=== PATIENT | female | born 1990 | race Hispanic/Latino ===

== ENCOUNTER 2018-10-25 15:02 | Inpatient (IN) | payer OTHER ==
[~2018-10-25 15:02] MED LIST: Dexamethasone 20 MG/5 ML VIAL ONE; Ondansetron PF 4 MG/2 ML Vial ONE; ePHEDrine 50 MG/ML VIAL ONE
[2018-10-25 16:36] LABS: Hemoglobin 10.2 g/dL (12.0-16.0); Mean Corpuscular HGB CONC 32.6 g/dL (32.0-36.0); Mean Corpuscular Volume 70.6 fL (78.0-98.0); Mean Platelet Volume 9.3 fL (7.4-10.4); Platelet Count 235 thou/uL (130-400); Red Blood Cell (RBC) Count 4.41 mill/uL (4.20-5.40); White Blood Cell (WBC) Count 8.6 thou/uL (4.8-10.8)
[2018-10-25] MEDS ORDERED: MORPHINE 5 MG/10 ML PF VIAL ONE (16:46)
[2018-10-25] MEDS ORDERED: Azithromycin 500 MG VIAL ONE (16:59)
[2018-10-25 17:14] LABS: HBSAg Index 0.23 S/CO (0-0.99); Hep B Surf Ag Non-Reactive S/CO (NonReactive); Syphilis Antibody Nonreactive (Nonreactive); Syphilis Antibody Index 0.04 S/CO (<1.00 Non-Reactive)
[2018-10-25] MEDS ORDERED: Oxytocin 10 UNITS/ML VIAL ONE (17:30)
[2018-10-25] MEDS ORDERED: ePHEDrine/0.9% NaCl/PF SYRINGE 50 mg/10 ml ONE (17:31)
[2018-10-25] MEDS ORDERED: Ondansetron PF 4 MG/2 ML Vial ONE (17:31)
[2018-10-25] MEDS ORDERED: Dexamethasone 4 mg/ml Vial ONE (17:31)
[2018-10-25 17:44] LABS: Hemoglobin 8.4 g/dL (12.0-16.0); Mean Corpuscular HGB CONC 33.2 g/dL (32.0-36.0); Mean Corpuscular Hemoglobin 23.4 pg (27.0-31.0); Mean Corpuscular Volume 70.5 fL (78.0-98.0); Mean Platelet Volume 9.1 fL (7.4-10.4); Platelet Count 191 thou/uL (130-400); RBC Distribution Width 13.9 % (11.5-14.5); Red Blood Cell (RBC) Count 3.57 mill/uL (4.20-5.40); White Blood Cell (WBC) Count 6.6 thou/uL (4.8-10.8)
[2018-10-25] MEDS ORDERED: diphenhydrAMINE 50 MG/ML VIAL IVP PRN (18:14)
[2018-10-25] MEDS ORDERED: Ondansetron HCl/PF 4 MG/2 ML Vial IVP PRN (18:14)
[2018-10-25] MEDS ORDERED: Naloxone HCl 0.4 mg/ml Vial IV PRN (18:14)
[2018-10-25] MEDS ORDERED: HYDROmorphone 2 MG/ML VIAL SLOW IVP PRN (18:14)
[2018-10-25] MEDS ORDERED: Promethazine HCl 25 MG SUPP PR PRN (18:14)
[2018-10-25] MEDS ORDERED: Ondansetron PF 4 MG/2 ML Vial IVP PRN (18:14)
[2018-10-25] MEDS ORDERED: Naloxone HCl 0.4 mg/ml Vial IVP PRN ×2 (18:14)
[2018-10-25] MEDS ORDERED: Promethazine HCl 25 MG/ML VIAL IM PRN ×2 (18:14→19:18)
[2018-10-25] MEDS ORDERED: Meperidine HCl/PF 25 MG/ML VIAL SLOW IVP PRN (18:14)
[2018-10-25] MEDS ORDERED: L&D-Morphine 4 MG/ML VIAL SLOW IVP PRN (18:14)
[2018-10-25] MEDS ORDERED: Ketorolac Tromethamine 30 MG/ML VIAL IVP SCH (18:15)
[2018-10-25] MEDS ORDERED: Communication Order-Pharmacy FS SCH (18:15)
[2018-10-25] MEDS ORDERED: NS / Oxytocin 40 units/1000ml 1,000 ML IV SCH (19:18)
[2018-10-25] MEDS ORDERED: hydrALAZINE 20 MG/ML VIAL SLOW IVP PRN ×2 (19:18)
[2018-10-25] MEDS: Ketorolac Tromethamine 30 MG/ML VIAL IVP PRN (21:35)
[2018-10-25] MEDS: Ondansetron PF 4 MG/2 ML Vial IVP PRN (21:36)
[2018-10-25 21:40] LABS: Hemoglobin 9.4 g/dL (12.0-16.0)
--- NOTE | 2018-10-25 22:06 | PDOC.PP ---
Post Progress Note Post Day #: 0 Subjective: Patient had an episode of vomiting and received zofran after this. She states she has minimal to no pain. She denies feeling dizzy or weak. Has been tolerating water and ice chips. Vital Signs (12 hours) Temp Pulse Resp BP 10/25/18 18:02 97.7 F 83 20 108/59 L Weight Weight 83.915 kg - Physical Examination General: NAD Cardiovascular: no m/r/g, RRR Respiratory: clear to auscultation bilaterally, non-labored breathing Abdominal: + bowel sounds, lochia, no distention, appropriately TTP Fundus firm & at: 2cm below umbilicus Extremities: negative homans (B) Skin: CS incision dry & intact, no rash Neurological: no gross focal deficits Psychiatric: A&Ox3, normal affect Result Diagrams: 10/26/18 10:18 Additional Labs: Post Labs Blood Type A POSITIVE 10/25/18 17:25 Hep Bs Antigen Non-Reactive S/CO (NonReactive) 10/25/18 16:14 (1) Term delivered Code(s): O80 - ENCOUNTER FOR FULL-TERM UNCOMPLICATED DELIVERY Status: Acute (2) Term Code(s): Z34.90 - ENCNTR FOR SUPRVSN OF NORMAL , UNSP, UNSP TRIMESTER Status: Acute - Assessment/Plan # PP day 0, 4 hr post op check - draining clear urine, 250 ml output in last 4 hours - uterus firm, appropriate TTP - patient denies dizziness, still appears mildly pale, pulse in 80s, BPs in 110- 120s/70s - received 1 U transusion, Hgb 9.4 - will re-check hgb in AM Addendum - Attending - Attending Attestation Date/Time: 10/26/18 1048 I personally evaluated the patient and discussed the management with Dr. Llanes. I agree with the History, Examination, Assessment and Plan documented above with any addition or exceptions noted below.
[2018-10-26] MEDS: Ketorolac Tromethamine 30 MG/ML VIAL IVP PRN ×3 (04:41→17:24)
[2018-10-26] MEDS: Lactated Ringer's 1,000 ML IV SCH ×3 (04:41→20:28)
--- NOTE | 2018-10-26 07:22 | PDOC.PP ---
Post Progress Note Post Day #: 1 Subjective: No significant overnight events. Patient doing well this AM. Denies dizziness or fatigue. She has yet to stand up and walk around at this point. Tolerating PO. PO intake tolerated: yes Flatus: yes Ambulation: no Vital Signs (12 hours) Temp Pulse Resp BP Pulse Ox 10/26/18 04:56 98.0 F 70 17 101/56 L 10/26/18 03:00 98.1 F 71 17 106/60 10/26/18 00:25 98.1 F 68 17 111/56 L 10/25/18 22:30 98.1 F 73 17 128/68 10/25/18 21:30 97.6 F 65 16 120/68 98 Weight Weight 83.915 kg - Physical Examination General: NAD Cardiovascular: RRR Respiratory: clear to auscultation bilaterally, non-labored breathing Abdominal: + bowel sounds, lochia (Minimal), no distention, appropriately TTP Fundus firm & at: at umbilicus Extremities: negative homans (B) Skin: CS incision dry & intact, no rash Neurological: no gross focal deficits Psychiatric: A&Ox3, normal affect Result Diagrams: 10/26/18 10:18 Additional Labs: Post Labs Blood Type A POSITIVE 10/25/18 17:25 Hep Bs Antigen Non-Reactive S/CO (NonReactive) 10/25/18 16:14 - Assessment/Plan 28 year old at 40.2 wks delivered TAGA F via pLTCS for NRFHT's ( persistent cat II strip) at 17:05 on 10/25. Apgars 8/9. 1. Routine PP care - Post-op day #1 s/p pLTCS - Encourage ambulation - SCD's for DVT ppx - Remove hughes catheter - ADAT - Rubella immune, Rh + 2. PPH - QBL 1550 mL - Starting H/H 10.2/31.2 --> intraoperative H/H 8.4/25.2 --> 3h post-op H/H 9.4/ 28.1 - Patient transfused 1 unit type and crossed pRBC's immediately post-op - VSS - Patient asymptomatic - Continue to monitor - Iron BID with stool softener 3. Anemia of - See plan as above Dispo: LOS >48 hours. Continue to monitor today and encourage ambulation. Addendum - Attending - Attending Attestation Date/Time: 10/26/18 5737 I personally evaluated the patient and discussed the management with Dr. Martines and team. I agree with the History, Examination, Assessment and Plan documented above with any addition or exceptions noted below. Doing ok this morning besides being a bit fatigued. Monitor h/h, transfusion if necessary.
[2018-10-26] MEDS: Ondansetron PF 4 MG/2 ML Vial IVP PRN (08:45)
[2018-10-26 10:33] LABS: Hemoglobin 7.4 g/dL (12.0-16.0)
[2018-10-26] MEDS ORDERED: Acetaminophen 325 MG TAB PO PRN (21:20)
[2018-10-26] MEDS ORDERED: Bisacodyl 10 MG SUPP PR PRN (21:20)
[2018-10-27] MEDS: Ibuprofen 800 MG TAB PO SCH ×4 (01:14→23:53)
[2018-10-27] MEDS: HYDROcodone/Acetaminophen 5/325 mg Tablet PO PRN ×3 (01:14→14:21)
[2018-10-27] MEDS: Lactated Ringer's 1,000 ML IV SCH (04:59)
[2018-10-27 06:01] LABS: Mean Corpuscular HGB CONC 32.9 g/dL (32.0-36.0); Mean Platelet Volume 8.8 fL (7.4-10.4); Platelet Count 187 thou/uL (130-400); RBC Distribution Width 15.3 % (11.5-14.5); Red Blood Cell (RBC) Count 2.91 mill/uL (4.20-5.40); White Blood Cell (WBC) Count 6.6 thou/uL (4.8-10.8)
--- NOTE | 2018-10-27 06:54 | PDOC.PP ---
Post Progress Note Post Day #: 2 Subjective: Patient doing well this AM. No significant overnight events. Hemoglobin 7 this AM, but patient completely asymptomatic. VSS. She denies dizziness upon standing or fatigue. Patient has not ambulated much since delivery. She was encouraged to do so. PO intake tolerated: yes Flatus: yes Ambulation: yes Vital Signs (12 hours) Temp Pulse Resp BP Pulse Ox 10/27/18 05:30 98.2 F 72 18 96/51 L 10/27/18 01:10 98.3 F 75 18 110/64 10/26/18 19:28 97.9 F 76 18 106/64 100 Weight Weight 83.915 kg - Physical Examination General: NAD Cardiovascular: RRR Deviation from normal: 2/6 systolic murmur Respiratory: clear to auscultation bilaterally, non-labored breathing Abdominal: + bowel sounds, lochia (minimal), no distention, appropriately TTP Extremities: negative homans (B) Skin: CS incision dry & intact, no rash Neurological: no gross focal deficits Psychiatric: A&Ox3, normal affect Result Diagrams: 10/28/18 06:25 Additional Labs: Post Labs Blood Type A POSITIVE 10/25/18 17:25 Hep Bs Antigen Non-Reactive S/CO (NonReactive) 10/25/18 16:14 (1) PPH ( hemorrhage) Code(s): O72.1 - OTHER IMMEDIATE HEMORRHAGE Status: Acute (2) Anemia affecting Code(s): O99.019 - ANEMIA COMPLICATING , UNSPECIFIED TRIMESTER Status : Acute (3) Term delivered Code(s): O80 - ENCOUNTER FOR FULL-TERM UNCOMPLICATED DELIVERY Status: Acute - Assessment/Plan 28 year old at 40.2 wks delivered TAGA F infant via pLTCS for NRFHT's ( persistent cat II strip) at 17:05 on 10/25. Apgars 8/9. 1. Routine PP care - Post-op day #2 s/p pLTCS - Encourage ambulation - SCD's for DVT ppx - Remove hughes catheter - ADAT - Rubella immune, Rh + 2. PPH - QBL 1550 mL - Starting H/H 10.2/31.2 --> intraoperative H/H 8.4/25.2 --> 3h post-op H/H 9.4/ 28.1 --> 7.4 630 AM --> 7.0 10/27 - Patient transfused 1 unit type and crossed pRBC's immediately post-op - VSS - Patient asymptomatic - Continue to monitor; transfuse when <7 or symptomatic - Iron BID with stool softener 3. Anemia of - See plan as above Dispo: LOS >48 hours. Continue to monitor today and encourage ambulation. Possible d/c home tomorrow. Addendum - Attending - Attending Attestation Date/Time: 10/27/18 5645 I personally evaluated the patient and discussed the management with Dr. Martines I agree with the History, Examination, Assessment and Plan documented above with any addition or exceptions noted below. 28 female s/p PLTCS 2/2 NRFHT with persistent cat II tracing POD/PPD#2 Patient will persistent fatigue and dizziness with ambulation. Lochia minimal. Breast feeding. Not ambulating due to dizziness. Reports abdominal pain with movement. Fundus firm and nontender. Lateral edges of incision, pain noted with palpation. 1. s/p PLTCS: Continue routine care. Incision healing well. No s/sx of infection. Will improve pain control. Discussed alternatives including abdominal binder and heat therapy.
[2018-10-27] MEDS: Docusate 100 MG CAP PO SCH ×2 (08:29→21:10)
[2018-10-27] MEDS: Ferrous Sulfate 325 MG TAB PO SCH ×2 (08:29→21:10)
[2018-10-27] MEDS: Prenatal Vitamin 1 TAB PO SCH (08:29)
[2018-10-27] MEDS ORDERED: Polyethylene Glycol 3350 17 GM Packet PO SCH (09:00)
[2018-10-27] MEDS ORDERED: Docusate Calcium (SURFAK) 240 MG CAP PO SCH (09:00)
--- NOTE | 2018-10-27 12:28 | OP ---
DATE OF PROCEDURE: 11/24/2018 RESIDENT SURGEON: Myrtle Martines DO IN [employer] SURGEON: Jacinto Llanes MD ATTENDING SURGEON: Dr. Jose Verdin PROCEDURE PERFORMED: Primary low-transverse section. PREOPERATIVE DIAGNOSES: 1. Term intrauterine and labor. 2. Non-reassuring heart tones, persistent category II strip, not responsive to resuscitative measures. 3. Anemia in . POSTOPERATIVE DIAGNOSES: 1. Term intrauterine , delivered. 2. Non-reassuring heart tones, persistent category II strip, not responsive to resuscitative measures. 3. hemorrhage, category IV hemorrhage ANESTHESIA: Spinal. INDICATIONS: This is a 28-year-old, G3, P2-0-0-2 at 40 and 2 weeks, who presented in labor and was noted to have a persistent category II strip. Patient was taken back for urgent delivery. DESCRIPTION OF PROCEDURE: After risks, benefits, and alternatives were explained to the patient, she gave informed consent. Preoperative antibiotics included cefazolin 2 g IV and azithromycin 500 mg. The patient was taken to the operating room and spinal anesthesia was initiated. She was placed in the supine position with a leftward tilt and prepped and draped in the usual sterile fashion. A Pfannenstiel incision was made with a scalpel and carried down to the level of the fascia, which was sharply nicked. The fascial cut was extended bilaterally with Johnson scissors. The inferior and superior edges of the cut fascial edges were elevated with Aliyah clamps and underlying rectus muscles were sharply and bluntly dissected free. The recti were divided digitally and retracted manually. The peritoneum was entered bluntly and retracted manually. Bladder blade was placed. Bladder flap was created with Metzenbaum scissors. A low-transverse score was made with a scalpel and the uterus was entered in the midline with the scalpel. Upon entering the uterus, there was noted to be a lot of bleeding potentially due to entry into a uterine sinus. The hysterotomy was extended manually. Clear fluid was noted and the was noted to be vertex and was easily delivered by fundal pressure. Mouth and nares were bulb suctioned. Cord was clamped and cut and grossly normal female was handed to the waiting nurse. Cord blood was obtained. Placenta was manually extracted. It was intact with 3-vessel cord noted and discarded. There was a significant amount of bleeding secondary to entry into the uterine sinus. The uterus was externalized and the endometrium was curetted with a dry lap. Due to the amount of bleeding at this point in time, a stat H and H was sent intraoperatively. Starting H and H was noted to be 10.2/31.2. H and H intraoperatively was 8.4/25.2. The procedure was continued. A bladder blade was replaced and the uterus was closed with a running locking #1 monocryl suture followed by a nonlocking #1 chromic imbricating suture. The left uterine artery was ligated with an [place] stitch. After ligation of the uterine artery, the hysterotomy site was noted to be hemostatic. The abdomen was irrigated with saline and suctioned free of clots. The bleeders were appropriately cauterized. The uterus was internalized. The hysterotomy was again noted to be hemostatic. The peritoneum was closed with 3- 0 Vicryl in a running nonlocking fashion. The fascia was then closed with a running nonlocking 0 PDS suture. The subcutaneous tissue was irrigated and bleeders were cauterized. The subcutaneous tissue was approximated using 2-0 plain gut on SH. The skin was approximated with a 4-0 monofilament and a pressure dressing was placed. All counts were correct. The patient tolerated the procedure well despite blood loss. She went to the recovery room in stable condition. ESTIMATED BLOOD LOSS: 1550 mL. COMPLICATIONS: The patient did have hemorrhage with QBL noted to be 1550 mL. However, with the bleeding sinus, the QBL may be better estimated at approximately 800 mL. There was significant amount of blood with preplacental fluid. The patient was typed and crossed intraoperatively and she was given 1 unit of packed red blood cells immediately postoperatively. Her H and H intraoperatively was 8.4/25.2 as stated previously. Plan is to repeat in 2 hours and again in the a.m. We will transfuse blood as needed. FINDINGS: Grossly normal female with Apgars of 8 and 9. Grossly normal placenta with 3-vessel cord discarded. DRAINS: Rachel to gravity, draining red orange urine. There is no indication that the bladder was infected during the surgery. Will continue to monitor as there was lot of manipulation in the lower portion of the abdomen that may account for this change in urine color. Attending addendum: I was present and scrubbed for the entire case. Job ID: [id number] [facility]
[2018-10-28] MEDS: HYDROcodone/Acetaminophen 5/325 mg Tablet PO PRN ×3 (04:47→14:27)
[2018-10-28] MEDS: Ibuprofen 800 MG TAB PO SCH ×2 (06:33→14:27)
[2018-10-28 06:37] LABS: Hemoglobin 8.4 g/dL (12.0-16.0); Mean Corpuscular HGB CONC 32.8 g/dL (32.0-36.0); Mean Corpuscular Hemoglobin 24.4 pg (27.0-31.0); Mean Corpuscular Volume 74.6 fL (78.0-98.0); Platelet Count 221 thou/uL (130-400); RBC Distribution Width 15.3 % (11.5-14.5); Red Blood Cell (RBC) Count 3.44 mill/uL (4.20-5.40); White Blood Cell (WBC) Count 6.9 thou/uL (4.8-10.8)
[2018-10-28 08:20] VITALS: TEMP 98
--- NOTE | 2018-10-28 08:47 | PDOC.PP ---
Post Progress Note Post Day #: 3 Subjective: Patient is a 28 y/o HF Post-Op Day 3 s/p pLTCS due to NRFHTs (Cat II) @ 40.2 weeks who delivered a TAGA F. Hospital stay has been complicated by a PPH ( Cat IV) due to a uterine sinus / uterine artery bleed that was ligated with an O 'Bradley Suture, for which the patient was transfused 2 unit of PRBCs. The patient states that she is feeling well this morning. She slept well throughout the night and is complaining of less abdominal pain that yesterday. She denies fever, chest pain, shortness of breath, headache, visual changes, leg pain, and new onset neuropathy. She states that she is able to pass urine and flatus, but has not passed stool yet. She is ambulating without difficulty and has less dizziness than yesterday. The patient states that the baby is able to latch onto her breast well and is feeding appropriately. She has no concerns for the baby at this time. The patient denies any feelings of sadness, anxiety, or depression, and plans to use condoms for contraception in the intrapartum period. PO intake tolerated: yes Flatus: yes Ambulation: yes Vital Signs (12 hours) Temp Pulse Resp BP Pulse Ox 10/28/18 08:20 98.0 F 74 20 121/71 98 10/28/18 04:50 97.6 F 72 20 108/71 10/28/18 00:00 97.9 F 71 18 115/70 Weight Weight 83.915 kg - Physical Examination General: NAD Cardiovascular: RRR (2/6 systolic murmur) Respiratory: clear to auscultation bilaterally, non-labored breathing Abdominal: + bowel sounds, no distention, appropriately TTP Deviation from normal: Bandage covering LTCS scar Extremities: negative homans (B) Skin: CS incision dry & intact, no rash Neurological: no gross focal deficits Psychiatric: A&Ox3, normal affect Result Diagrams: 10/28/18 06:25 Additional Labs: Post Labs Blood Type A POSITIVE 10/25/18 17:25 Hep Bs Antigen Non-Reactive S/CO (NonReactive) 10/25/18 16:14 (1) Anemia affecting Code(s): O99.019 - ANEMIA COMPLICATING , UNSPECIFIED TRIMESTER Status : Acute (2) PPH ( hemorrhage) Code(s): O72.1 - OTHER IMMEDIATE HEMORRHAGE Status: Acute (3) Term delivered Code(s): O80 - ENCOUNTER FOR FULL-TERM UNCOMPLICATED DELIVERY Status: Acute (4) Term Code(s): Z34.90 - ENCNTR FOR SUPRVSN OF NORMAL , UNSP, UNSP TRIMESTER Status: Acute - Assessment/Plan 1. Routine Post- Care S/P pLCTS Post-Op Day #3 -Ambulating PRN -Pain is well-controlled with Ibuprofen and [place] -Rh+, Hgb (8.4), Hct (25.7) -Patient was advised on D/C physical restrictions -Patient was advised on appropriate Post- F/U -Patient was advised on appropriate [place] F/U 1. PPH -Treated Intraoperatively w/ O'[place] Suture for Uterine Artery Bleed -Patient received 2 Units PRBCs -Hgb (8.4), Hct (25.7) 2. Anemia of -Patient's H&Hs monitored during Hospital Stay -Patient was prescribed Fe 3. Term , Delivered Dispo: Plan for DC Home today.
[2018-10-28] MEDS ORDERED: Polyethylene Glycol 3350 17 GM Packet PO SCH (09:00)
[2018-10-28] MEDS: Docusate 100 MG CAP PO SCH (09:28)
[2018-10-28] MEDS: Ferrous Sulfate 325 MG TAB PO SCH (09:28)
[2018-10-28] MEDS: Prenatal Vitamin 1 TAB PO SCH (09:28)
[2018-10-28] MEDS: Lactated Ringer's 1,000 ML IV SCH (10:38)
[2018-10-28 12:19] VITALS: BP 116/71
== END 2018-10-28 14:45 | disposition home or self-care (01) | DRG 787 ==
LOC: L&D/OP 15:02 → L&D 17:19 → 3SW 21:04
PROVIDERS: ADMIT Emergency Medicine; ATTEND Emergency Medicine
PROC: 10D00Z1 Extraction of Products of Conception, Low, Open Approach (ICD-10-PCS; principal; 2018-10-26)
DX: O76 Abnormality in fetal heart rate and rhythm complicating labor and delivery (principal); O72.1 Other immediate postpartum hemorrhage; O99.02 Anemia complicating childbirth; D64.9 Anemia, unspecified; Z3A.40 40 weeks gestation of pregnancy; Z37.0 Single live birth
CPT/HCPCS: 36415; 36430; 51702; 85027; 86780; 86850; 86900; 86901; 87340; 88307; 99285; J0456; J0690; J1100; J1200; J1885; J2274; J2405; J2590; J3490; P9016